=== PATIENT | male | born 1965 | race African-American/Black ===

== ENCOUNTER → 2018-04-09 | Outpatient (CLI) | payer BC ==
--- NOTE | 2018-04-10 00:20 | EKG REPORT ---
SEVERITY:- ABNORMAL ECG - SINUS RHYTHM PROBABLE LEFT ATRIAL ABNORMALITY ABNORMAL T, CONSIDER ISCHEMIA, ANT-LAT LEADS : Confirmed by: Myrna Montenegro MD 10-Apr-2018 00:19:37
== END ==
LOC: OD 10:17
PROVIDERS: ATTEND Nurse Practitioner Family
DX: I10 Essential (primary) hypertension (principal)
CPT/HCPCS: 93005; 93010

== ENCOUNTER 2018-04-20 13:24 | Emergency (ER) | payer BC ==
[2018-04-20 13:53] LABS: APPEARANCE,URINE CLEAR; BILIRUBIN,URINE NEGATIVE (NEGATIVE); COLOR,URINE YELLOW; GLUCOSE, URINE NEGATIVE (NEGATIVE); KETONES,URINE NEGATIVE (NEGATIVE); LEUKOCYTE ESTERASE,URINE NEGATIVE (NEGATIVE); NITRITE,URINE NEGATIVE (NEGATIVE); PROTEIN,URINE NEGATIVE (NEGATIVE); URINE SPECIFIC GRAVITY 1.018; UROBILINOGEN,URINE NEGATIVE mg/dL (<2.0)
[2018-04-20] MEDS ORDERED: KETOROLAC TROMETHAMINE INJ/PF 30 MG/1 ML SDV IV ONE (14:02)
--- NOTE | 2018-04-20 14:09 | ER Document Report ---
ED GI/ - General Chief Complaint: Flank Pain Stated Complaint: FLANK PAIN, UTI SYMPTOMS Time Seen by Provider: 04/20/18 13:45 Information source: Patient Notes: Patient is a 52-year-old male that presents today with the onset this morning of some left back pain and some slight pain with urination. He states nausea and vomiting 1. He denies any aggravating or relieving factors. He denies any testicular pain or swelling. He denies any obvious dark or bloody urine. Patient denies a history of similar pain. Patient denies a personal family history of kidney stones. Patient denies any posterior rib pain, cough, or shortness of breath. TRAVEL OUTSIDE OF THE [place] IN LAST 30 DAYS: No - HPI Patient complains to provider of: Other - See above Onset: This morning Timing/Duration: Gradual Quality of pain: Achy, Dull Severity at maximum: Mild Severity in ED: Mild Pain Level: Denies Location: Other - See above Associated symptoms: Other - See above Exacerbated by: Denies Relieved by: Denies Similar symptoms previously: No Recently seen / treated by doctor: No - Related Data Allergies/Adverse Reactions: No Known Allergies Allergy (Verified 08/30/15 18:10) Past Medical History - General Information source: Patient - Social History Smoking Status: Unknown if Ever Smoked Cigarette use (# per day): No Chew tobacco use (# tins/day): No Smoking Education Provided: No Frequency of alcohol use: None Family History: Reviewed & Not Pertinent - Past Medical History Cardiac Medical History: Reports: Hx Hypertension Review of Systems - Review of Systems Constitutional: denies: Fever EENT: denies: Eye discharge, Nose discharge Cardiovascular: denies: Chest pain, Palpitations Respiratory: denies: Short of breath Gastrointestinal: denies: Vomiting Genitourinary: denies: Dysuria Musculoskeletal: denies: Leg swelling Skin: Other - no hives. denies: Rash Neurological/Psychological: Other - no slurred speech -: Yes All other systems reviewed and negative Physical Exam - Vital signs Vitals: Temp Pulse Resp BP Pulse Ox 98.2 F 90 20 155/101 H 96 04/20/18 13:32 04/20/18 13:32 04/20/18 13:32 04/20/18 13:32 04/20/18 13:32 Notes: Reviewed vital signs and nursing note as charted by RN. CONSTITUTIONAL: Alert and oriented and responds appropriately to questions. Well -appearing; well-nourished HEAD: Normocephalic; atraumatic CARD: Regular rate and rhythm; no murmurs RESP: Normal chest excursion without splinting or tachypnea; breath sounds clear and equal bilaterally ABD/GI: Normal bowel sounds; non-distended; soft, minimally tender to deep palpation of the left lower quadrant without rebound or guarding GI/: Patient has no penile lesions, testicular pain or swelling, or inguinal masses present BACK: The back appears normal and is non-tender to palpation, minimal left- sided CVA tenderness with no swelling or erythema noted EXT: Normal ROM in all joints; non-tender to palpation; no edema SKIN: No acute lesions noted NEURO: Moves all extremities equally; Motor and sensory function intact PSYCH: The patient's mood and manner are appropriate. Grooming and personal hygiene are appropriate. Course - Re-evaluation Re-evalutation: 04/20/18 14:09 Given the above history and physical examination I have concern initially for possibility of a kidney stone. I will also check for an obvious urinary tract infection. I do not see any signs of right lower quadrant tenderness and the patient has no testicular pain or swelling. 04/20/18 15:27 CT as recorded consistent with history. White blood cell count is elevated. Urinalysis shows no infection. Given the CT scan report, I have added a liver panel for patient's baseline laboratory values and assessment. 04/20/18 16:25 Labs as recorded. Normal liver panel. Patient's pain is controlled. A liter fluid has been given. No signs or indications of an infected kidney stone. Patient will be discharged home with strict return precautions and follow-up with urology as needed. - Vital Signs Vital signs: Temp Pulse Resp BP Pulse Ox 98.2 F 90 20 155/101 H 96 04/20/18 13:32 04/20/18 13:32 04/20/18 13:32 04/20/18 13:32 04/20/18 13:32 - Laboratory Result Diagrams: 04/20/18 14:00 04/20/18 14:00 Laboratory results interpreted by me: 04/20/18 04/20/18 04/20/18 13:49 14:00 14:00 WBC 11.3 H RDW 14.7 H Seg Neutrophils % 80.9 H Lymphocytes % 12.0 L Absolute Neutrophils 9.2 H Sodium 147.0 H Glucose 125 H Urine Ascorbic Acid 20 H Discharge - Discharge Clinical Impression: Kidney stone on left side Condition: Good Disposition: HOME, SELF-CARE Additional Instructions: Come back immediately for any increased pain, fevers, inability to urinate, vomiting, or any other acute problems. Please follow-up with your primary care physician and possibly the urologist as we have provided. Referrals: BYRON BREWSTER NP [Primary Care Provider] - Follow up as needed CHRISSY ALONZO MD [[facility]] - Follow up as needed
--- NOTE | 2018-04-20 14:20 | RADIOLOGY REPORT (SQ) ---
EXAM DESCRIPTION: CT LTD RENAL STONE PROTOCOL ON COMPLETED DATE/TIME: 04/20/2018 1:54 pm REASON FOR STUDY: flank pain left lower quadrant pain. Painful urination COMPARISON: None. TECHNIQUE: CT scan of the abdomen and pelvis performed without intravenous or oral contrast. Images reviewed with lung, soft tissue, and bone windows. Reconstructed coronal and sagittal MPR images revi ewed. All images stored on PACS. All CT scanners at this facility use dose modulation, iterative reconstruction, and/or weight based d osing when appropriate to reduce radiation dose to as low as reasonably achievable (ALARA). [facility]: Dose Right [facility]: CareDose [facility]: Dose Right [facility]: Teradose 4D [facility]: [employer] RADIATION DOSE: CT Rad equipment meets quality standard of care and radiation dose reduction techniq ues were employed. CTDIvol: 15.0 mGy. DLP: 809 mGy-cm.mGy. LIMITATIONS: None. FINDINGS: LOWER CHEST: No abnormality . NON-CONTRASTED LIVER, SPLEEN, ADRENALS: Liver: Fatty infiltration. Borderline hepatomegaly. Spleen : No abnormality. Adrenals: No abnormality. PANCREAS: Not abnormality. GALLBLADDER: No abnormality. . RIGHT KIDNEY AND URETER: No abnormality. LEFT KIDNEY AND URETER: Nonobstructive calculus upper pole left kidney. Mild ectasia left upper magdiel ecting system and left ureter down to urinary bladder. Evidence of a small 3 mm calculus left side o f urinary bladder consistent with recent passage AORTA AND RETROPERITONEUM: Atherosclerotic change of infrarenal abdominal aorta and iliac vessels. BOWEL AND PERITONEAL CAVITY: Colonic diverticulosis. APPENDIX: No abnormality seen. PELVIS, BLADDER, AND ABDOMINAL WALL:Umbilical hernia containing fat. Urinary bladder: No abnormalit y. Prostate seminal vesicles: No abnormality. BONES: No abnormality seen IMPRESSION: 1. Borderline hepatomegaly and fatty infiltration of the liver. 2. Mild ectasia of l eft upper collecting system and left ureter secondary to recent passage of distal left ureteral calcu bismark to the bladder measuring 3 mm. COMMENT: Quality ID # [id number]: Final reports with documentation of one or more dose reduction techniques (e.g., Automated exposure control, adjustment of the mA and/or kV according to patient size, use of iterative reconstruction technique) TECHNICAL DOCUMENTATION: JOB ID: [id number] SC-69 2010 [employer]- All Rights Reserved Reading location - IP/workstation name: [email or web address]
[2018-04-20 14:25] LABS: ABSOLUTE LYMPHOCYTES (AUTO) 1.4 10^3/uL (0.5-4.7); ABSOLUTE MONOCYTES (AUTO) 0.7 10^3/uL (0.1-1.4); ABSOLUTE NEUT (AUTO) 9.2 10^3/uL (1.7-8.2); BASOPHILS % (AUTO) 0.3 % (0-2); EOSINOPHILS % (AUTO) 0.4 % (0-6); HEMATOCRIT 45.3 % (37.9-51.0); HEMOGLOBIN 15.2 g/dL (13.5-17.0); MEAN CORPUSCULAR HEMOGLOBIN 28.4 pg (27.0-33.4); MEAN CORPUSCULAR HGB CONC 33.6 g/dL (32.0-36.0); MEAN CORPUSCULAR VOLUME 84 fl (80-97); MONOCYTES % (AUTO) 6.4 % (3-13); PLATELET COUNT 241 10^3/uL (150-450); RED BLOOD COUNT 5.37 10^6/uL (4.35-5.55); RED CELL DISTRIBUTION WIDTH 14.7 % (11.5-14.0); SEGMENTED NEUTROPHILS % (AUTO) 80.9 % (42-78); TOTAL CELLS COUNTED % (AUTO) 100 %; WHITE BLOOD COUNT 11.3 10^3/uL (4.0-10.5)
[2018-04-20] MEDS ORDERED: NORMAL SALINE 1000 ML 1,000 ML IV ONE (14:40)
[2018-04-20 14:45] LABS: ANION GAP 12 (5-19); BLOOD UREA NITROGEN 13 mg/dL (7-20); CALCIUM 9.8 mg/dL (8.4-10.2); CARBON DIOXIDE 30 mmol/L (22-30); CHLORIDE 105 mmol/L (98-107); GLUCOSE 125 mg/dL (75-110); POTASSIUM 4.1 mmol/L (3.6-5.0)
[2018-04-20 15:28] LABS: ALANINE AMINOTRANSFERASE 25 U/L (21-72); ALBUMIN 4.4 g/dL (3.5-5.0); ALKALINE PHOSPHATASE 62 U/L (38-126); ASPARTATE AMINO TRANSFERASE 23 U/L (17-59); BILIRUBIN,DIRECT 0.3 mg/dL (0.0-0.4); BILIRUBIN,TOTAL 0.6 mg/dL (0.2-1.3); TOTAL PROTEIN 7.9 g/dL (6.3-8.2)
[2018-04-20 16:59] VITALS: BP 140/86
== END 2018-04-20 16:59 | disposition home or self-care (01) ==
LOC: ER 13:24
DX: N21.0 Calculus in bladder (principal); R11.2 Nausea with vomiting, unspecified; M54.9 Dorsalgia, unspecified; R30.0 Dysuria; I10 Essential (primary) hypertension; D72.829 Elevated white blood cell count, unspecified
CPT/HCPCS: 99284; 96361; 96374; 36415; 85025; 80076; 80048; 81001; 76380; J1885; J7030

== ENCOUNTER 2018-05-09 05:50 | Emergency (ER) | payer OTHER, BC ==
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
[2018-05-09 08:07] VITALS: BP 130/88
== END 2018-05-09 07:50 | disposition home or self-care (01) ==
LOC: ER 05:50
DX: M54.2 Cervicalgia (principal); M54.5 Low back pain; I10 Essential (primary) hypertension; V69.09XA Driver of heavy transport vehicle injured in collision with other motor vehicles in nontraffic accident, initial encounter
CPT/HCPCS: 99283

== ENCOUNTER 2019-08-11 08:05 | Day surgery (SDC) | payer OTHER, BC ==
[2019-08-11 08:55] LABS: INTERNATIONAL RATION (INR) 1.09; PROTHROMBIN TIME 14.1 SEC (11.4-15.4)
[2019-08-11 08:56] LABS: PARTIAL THROMBOPLASTIN TIME 30.7 SEC (23.5-35.8)
--- NOTE | 2019-08-11 11:22 | RADIOLOGY REPORT (SQ) ---
EXAM DESCRIPTION: MYELOGRAM CERVICAL; CT CERVICAL SPINE WITHOUT COMPLETED DATE/TIME: 08/11/2019 10:43 am; 08/11/2019 10:39 am REASON FOR STUDY: RADICULOPATHY, CERVICAL REGION M54.12 RADICULOPATHY, CERVICAL REGION COMPARISON: None. FLUOROSCOPY TIME: 8 seconds 8 digital fluoroscopic images saved to PACS. Postmyelogram cervical spine CT with sagittal and coron al reconstructions TECHNIQUE: Fluoroscopic guided cervical myelogram. Postmyelogram cervical spine CT with sagittal and coronal reconstructions LIMITATIONS: None. PROCEDURE: After written consent and assessment were obtained, the patient was brought into the fluo roscopy room and placed prone on the table. The patient's lower back was prepped in a sterile fashio n and an entry site was selected under live fluoroscopic guidance. The entry site was anesthetized wi th 5 mL of 1% lidocaine. 22 gauge spinal needle was advanced through the skin and into the thecal sa c at the level of right paracentral L2-3. Contrast was injected into the thecal sac. Following the procedure the needle was removed and a sterile bandage was placed of the site. CONTRAST: 8 mL Omnipaque 300. IMAGES ACQUIRED: Multiple cervical prone Trendelenburg AP and oblique images, prone cross-table cervi tisha lateral film TECHNIQUE: After performing lumbar myelogram, axial images were acquired through the lumbar spine wi thout intravenous contrast. Images reviewed with lung, soft tissue and bone windows. Reconstructed coronal and sagittal MPR images reviewed. All images stored on PACS. All CT scanners at this facility use dose modulation, iterative reconstruction, and/or weight based d osing when appropriate to reduce radiation dose to as low as reasonably achievable (ALARA). [facility]: Dose Right [facility]: CareDose [facility]: Dose Right [facility]: Teradose 4D [facility]: [employer] FINDINGS: SEGMENTATION: Normal. No transitional anatomy. ALIGNMENT: Normal. VERTEBRAL BODIES: No fractures. No dislocation. No acute findings. HARDWARE: C5-6 fusion with anterior fixation plate and metallic disc spacer DISCS: Craniocervical junction, C1-2, C2-3 are unremarkable. There is ankylosis across the posterior C2-3 d isc margin and ankylosis across the interspinous ligaments at C2-3. No central or foraminal stenosis . At C3-4, there is moderate left-sided facet hypertrophy and mild left C3-4 foraminal narrowing. No c entral stenosis or right foraminal stenosis. The C4-5 level is unremarkable. At C5-6, there is fusion with hardware. No central or foraminal stenosis. At C6-7, minimal posterior disc bulge and bony spurring, minimal left foraminal narrowing from facet and uncovertebral hypertrophy. No central stenosis or right foraminal narrowing. C7-T1, T1-2, T2-3 are unremarkable. PEDICLES, TRANSVERSE PROCESSES: No fractures. No dislocation. No acute findings. FACETS, POSTERIOR ELEMENTS: No fractures. No dislocation. VISUALIZED RIBS: No fractures. SOFT TISSUES: No significant or acute finding in adjacent soft tissues. OTHER: Lung apices are clear. Airway is patent. IMPRESSION: No high-grade central canal or foraminal stenosis cervical spine. Post C5-6 fusion without recurrent significant central or foraminal stenosis. COMMENT: Patient medication list reviewed: Yes- Quality ID# [id number]:Eligible professional attests to doc umenting in the medical record they obtained, updated, or reviewed the patient's current medications. TECHNICAL DOCUMENTATION: JOB ID: [id number] Quality ID # [id number]: Final reports with documentation of one or more dose reduction techniques (e.g., Au tomated exposure control, adjustment of the mA and/or kV according to patient size, use of iterative reconstruction technique) 2010 [employer]- All Rights Reserved Reading location - IP/workstation name: [email or web address]
[2019-08-11 15:36] VITALS: BP 123/78
== END 2019-08-11 13:15 | disposition home or self-care (01) ==
LOC: RAD 08:05
PROVIDERS: ATTEND Orthopaedic Surgery
DX: M54.12 Radiculopathy, cervical region (principal); M54.2 Cervicalgia; Z79.899 Other long term (current) drug therapy; Z79.84 Long term (current) use of oral hypoglycemic drugs; Z79.82 Long term (current) use of aspirin; I10 Essential (primary) hypertension; Z87.891 Personal history of nicotine dependence
CPT/HCPCS: 36415; 72125; 72240; 82962; 85610; 85730